=== PATIENT | male | born 2000 | race Caucasian/White ===

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

== ENCOUNTER 2022-05-07 11:15 | Emergency (ER) | payer MEDICARE, MEDICAID ==
[~2022-05-07] VITALS: Ht 180.3 cm; Wt 72.2 kg
[2022-05-07] MEDS ORDERED: IBUPROFEN 600 MG (MOTRIN) TAB PO ONE (12:15)
[2022-05-07] MEDS ORDERED: METHOCARBAMOL 750 MG (ROBAXIN) TAB PO ONE (12:15)
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
[2022-05-07] MEDS ORDERED: CYCL10TA25 PO (13:17)
[2022-05-07] MEDS ORDERED: IBUP-1773 PO (13:17)
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
[2022-05-07 13:38] VITALS: BP 126/87
== END 2022-05-07 13:38 | disposition home or self-care (01) ==
LOC: EDUNIT# 11:15 → ER 11:18
DX: S16.1XXA Strain of muscle, fascia and tendon at neck level, initial encounter (principal); Z28.310 Unvaccinated for COVID-19; Y04.8XXA Assault by other bodily force, initial encounter
CPT/HCPCS: 72040

== ENCOUNTER 2023-03-13 22:52 | Emergency (ER) | payer MEDICARE, MEDICAID ==
[~2023-03-13] VITALS: Ht 180.3 cm; Wt 72.6 kg
[~2023-03-13 22:52] MED LIST changes: +CYCL10TA25 PO; +IBUP-1773 PO
[2023-03-13 23:18] VITALS: BP 100/72
== END 2023-03-14 00:23 | disposition left against medical advice (07) ==
LOC: EDUNIT# 22:52 → ER 22:54
DX: K08.89 Other specified disorders of teeth and supporting structures (principal); F17.210 Nicotine dependence, cigarettes, uncomplicated
CPT/HCPCS: 99281